=== PATIENT | male | born 2000 | race American Indian/Alaskan Native ===

== ENCOUNTER 2019-07-04 20:06 | Emergency (ER) | payer SELFPAY ==
[2019-07-04 20:20] VITALS: BP 142/82
[2019-07-04] MEDS ORDERED: IBUPROFEN ORAL LIQD 100 MG/5 ML ORAL.LIQD PO ONE (23:48)
--- NOTE | 2019-07-04 23:54 | Emergency Department Report ---
ED ENT HPI - General Chief complaint: Upper Respiratory Infection Stated complaint: FLU SX Time Seen by Provider: 07/04/19 22:54 Source: patient Mode of arrival: Ambulatory Limitations: No Limitations - History of Present Illness Initial comments: 18-year-old -[place] male patient without significant past medical history presents with complaints of sore throat, headache, and body aches for the past 2 days. He rates his throat pain is a 10/10 in severity and states it worsens with swallowing. He denies any cough, congestion, nausea/vomiting /diarrhea, chest pain, or rash. He rates his headache as a 4/10 in severity. He has not tried any [id number] medications for his symptoms. -: Sudden - Related Data Previous Rx's Medication Instructions Recorded Last Taken Type Azithromycin [Zithromax Z-IVANNA] 0 mg PO DAILY 5 Days #1 pack 07/04/19 Unknown Rx Ibuprofen [Motrin 800 MG tab] 800 mg PO Q8HR PRN #15 tablet 07/04/19 Unknown Rx Allergies Allergy/AdvReac Type Severity Reaction Status Date / Time No Known Allergies Allergy Unverified 07/04/19 21:10 ED Dental HPI - General Chief complaint: Upper Respiratory Infection Stated complaint: FLU SX Time Seen by Provider: 07/04/19 22:54 Source: patient Mode of arrival: Ambulatory Limitations: No Limitations - Related Data Previous Rx's Medication Instructions Recorded Last Taken Type Azithromycin [Zithromax Z-IVANNA] 0 mg PO DAILY 5 Days #1 pack 07/04/19 Unknown Rx Ibuprofen [Motrin 800 MG tab] 800 mg PO Q8HR PRN #15 tablet 07/04/19 Unknown Rx Allergies Allergy/AdvReac Type Severity Reaction Status Date / Time No Known Allergies Allergy Unverified 07/04/19 21:10 ED Review of Systems ROS: Stated complaint: FLU SX Other details as noted in HPI Constitutional: fever (Tactile), malaise, weakness. denies: chills ENT: throat pain Respiratory: denies: cough, shortness of breath Cardiovascular: denies: chest pain Gastrointestinal: denies: abdominal pain, nausea, vomiting, diarrhea Skin: denies: rash, lesions, change in color Neurological: denies: headache, weakness, numbness, paresthesias Hematological/Lymphatic: denies: swollen glands ED Past Medical Hx - Past Medical History Previous Medical History?: Yes Hx Asthma: Yes - Surgical History Past Surgical History?: Yes Additional Surgical History: T AND A - Social History Smoking Status: Never Smoker Substance Use Type: None - Medications Home Medications: Home Medications Medication Instructions Recorded Confirmed Last Taken Type Azithromycin [Zithromax Z-IVANNA] 0 mg PO DAILY 5 Days #1 pack 07/04/19 Unknown Rx Ibuprofen [Motrin 800 MG tab] 800 mg PO Q8HR PRN #15 tablet 07/04/19 Unknown Rx ED Physical Exam - General Limitations: No Limitations General appearance: alert, in no apparent distress - Head Head exam: Present: atraumatic, normocephalic - Eye Eye exam: Present: normal appearance - ENT ENT exam: Present: mucous membranes moist - Expanded ENT Exam Expanded Mouth exam: Absent: drooling, trismus, muffled voice Teeth exam: Absent: dental caries Throat exam: Positive: other (Bilateral tonsillectomy noted, moderate postpharyngeal erythema noted). Negative: tonsillar exudate - Neck Neck exam: Present: full ROM, lymphadenopathy (Tenderness to palpation without swelling noted). Absent: tenderness, meningismus - Respiratory Respiratory exam: Present: normal lung sounds bilaterally. Absent: respiratory distress - Cardiovascular Cardiovascular Exam: Present: regular rate, normal rhythm. Absent: systolic murmur, diastolic murmur, rubs, gallop - Extremities Exam Extremities exam: Present: normal inspection - Back Exam Back exam: Present: normal inspection - Neurological Exam Neurological exam: Present: alert, oriented X3 - Psychiatric Psychiatric exam: Present: normal affect, normal mood - Skin Skin exam: Present: warm, dry, intact, normal color. Absent: rash ED Course Vital Signs 07/04/19 07/04/19 20:16 23:23 Temperature 99.7 F H Pulse Rate 122 H 93 H Respiratory 20 17 Rate Blood Pressure 142/82 O2 Sat by Pulse 97 100 Oximetry ED Medical Decision Making - Lab Data Lab Results 07/04/19 Range/Units Unknown Group A Strep Rapid Negative (Negative) - Medical Decision Making 18-year-old patient here with sudden onset of sore throat that he rates as a 10/10 in severity. Postpharyngeal erythema noted on exam without exudate, patient has history of tonsillectomy. Rapid strep is negative, however given exam and symptoms will treat for strep pending culture results. Prescription for azithromycin given. Recommend follow-up with primary care provider in 3 to 5 days. Discussed strict return precautions in great detail with patient and patient's mother who both state understanding. Critical care attestation.: If time is entered above; I have spent that time in minutes in the direct care of this critically ill patient, excluding procedure time. ED Disposition Clinical Impression: Acute bacterial pharyngitis Disposition: TO HOME OR SELFCARE Is pt being admited?: No Condition: Stable Instructions: Strep Throat (ED), Mononucleosis (ED), Pharyngitis (ED) Prescriptions: Ibuprofen [Motrin 800 MG tab] 800 mg PO Q8HR PRN #15 tablet PRN Reason: pain/fever Azithromycin [Zithromax Z-IVANNA] 0 mg PO DAILY 5 Days #1 pack Referrals: PRIMARY CARE, [Primary Care Provider] - 3-5 Days Forms: Work/School Release Form(ED)
== END 2019-07-05 00:15 | disposition home or self-care (01) ==
LOC: ED 20:06
DX: J02.8 Acute pharyngitis due to other specified organisms (principal); B96.89 Other specified bacterial agents as the cause of diseases classified elsewhere; J45.909 Unspecified asthma, uncomplicated; Z79.899 Other long term (current) drug therapy
CPT/HCPCS: 87116; 87430